=== PATIENT | male | born 1990 | race Caucasian/White ===

== ENCOUNTER 2017-08-05 21:52 | Emergency (ER) | payer OTHER ==
[2017-08-05] MEDS ORDERED: IBUPROFEN 600 MG TABLET (FP) PO ONE ×2 (22:17→22:45)
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
[2017-08-05 22:53] VITALS: BP 127/84; PULSE 88; TEMP 98.9; BMI 27.2
== END 2017-08-05 22:54 | disposition home or self-care (01) ==
LOC: FER 21:52
DX: S16.1XXA Strain of muscle, fascia and tendon at neck level, initial encounter (principal); V23.4XXA Motorcycle driver injured in collision with car, pick-up truck or van in traffic accident, initial encounter; Y93.89 Activity, other specified; Y92.410 Unspecified street and highway as the place of occurrence of the external cause
CPT/HCPCS: 99281-25

== ENCOUNTER 2017-10-06 20:45 | Emergency (ER) | payer OTHER ==
[2017-10-06] MEDS ORDERED: DIPHTH,PERTUSS(ACELL),TET 0.5 ML DISP.SYRIN IM ONE (20:54)
--- NOTE | 2017-10-06 20:55 | PDOC ---
History of Present Illness - General History Source: Patient Exam Limitations: No Limitations - History of Present Illness Initial Comments: 10/06/17 21:36 The patient is a 27 year old male, with no significant past medical history, who presents to the emergency department s/p head injury earlier this evening. The patient reports he was playing basketball and when he went for the ball he was kneed above his left eyebrow and sustained a laceration. Patient reports associated pain to the site of the injury, but denies hitting his head on the floor, any other head trauma, headache, changes in vision, LOC, numbness, or tingling. Patient denies any fever or chills. He denies any nausea or vomiting. Patient does not recall when his last tetanus shot was. He denies any recent travel or sick contacts. Allergies: NKDA Past Surgical History: None reported Social History: Recreational Marijuana use. No Tobacco or ETOH use. <Jaun Hernandez - Last Filed: 10/06/17 21:39> <Fide Broussard - Last Filed: 10/07/17 04:36> - General Chief Complaint: Injury Stated Complaint: LACERATION Time Seen by Provider: 10/06/17 20:47 Past History <Jaun Hernandez - Last Filed: 10/06/17 21:39> - Past Medical History COPD: No - Suicide/Smoking/Psychosocial Hx Smoking History: Never smoked Have you smoked in the past 12 months: No Information on smoking cessation initiated: No Hx Alcohol Use: No Drug/Substance Use Hx: Yes (MARIJUANA) Substance Use Type: None <Fide Broussard - Last Filed: 10/07/17 04:36> - Past Medical History Allergies/Adverse Reactions: Allergies Allergy/AdvReac Type Severity Reaction Status Date / Time No Known Allergies Allergy Verified 10/06/17 20:46 Home Medications: Ambulatory Orders NK [No Known Home Medication] 08/05/17 Review of Systems - Review of Systems Able to Perform ROS?: Yes Comments:: 10/06/17 21:36 CONSTITUTIONAL: Absent: fever, no chills, no fatigue EYES: Absent: visual changes ENT: Absent: ear pain, no sore throat CARDIOVASCULAR: Absent: chest pain, no palpitations RESPIRATORY: Absent: cough, no SOB GI: Absent: abdominal pain, no nausea, no vomiting, no constipation, no diarrhea GENITOURINARY: Absent: dysuria, no frequency, no hematuria MUSKULOSKELETAL: Absent: back pain, no arthralgia, no myalgia SKIN: Present: Laceration/pain above left eyebrow Absent: rash NEURO: Absent: headache <Jaun Hernandez - Last Filed: 10/06/17 21:39> *Physical Exam - Vital Signs Last Vital Signs Temp Pulse Resp BP Pulse Ox 98.7 F 105 H 16 140/85 100 10/06/17 20:46 10/06/17 20:46 10/06/17 20:46 10/06/17 20:46 10/06/17 20:46 - Physical Exam Comments: 10/06/17 21:40 GENERAL: The patient is awake, alert, and fully oriented, in no acute distress. HEAD:Normal with no signs of trauma. EYES: Extraocular movements intact, sclera anicteric, conjunctiva clear. No significant orbital bone tenderness. Pupils are 3 mm equal and reactive to light NECK: Normal range of motion, supple without lymphadenopathy, JVD, or masses. EXTREMITIES: Normal range of motion, no edema. NEUROLOGICAL: Cranial nerves II through XII grossly intact. Normal speech, normal gait. PSYCH: Normal mood, normal affect. SKIN: 2.5 cm full thickness horizontal laceration above the lateral aspect of the left eyebrow. Warm, Dry, normal turgor, no rashes or other lesions noted. <Jaun Hernandez - Last Filed: 10/06/17 21:39> - Vital Signs Last Vital Signs Temp Pulse Resp BP Pulse Ox 98.7 F 105 H 16 140/85 100 10/06/17 20:46 10/06/17 20:46 10/06/17 20:46 10/06/17 20:46 10/06/17 20:46 <Fide Broussard - Last Filed: 10/07/17 04:36> Procedures - Laceration/Wound Repair Left Lower Frontal Wound Length: 5.0 to 7.5 cm Wound's Depth, Shape: linear Irrigated w/ Saline: Yes Betadine Prep: No Anesthesia: 1% Lidocaine Amount of Anesthetic (ccs): 2 Wound Debrided: minimal Wound Repaired With: Sutures Suture Size/Type: 5:0 Number of Sutures: 5 Layer Closure: No Sterile Dressing Applied: No Splint Applied: No Progress: Lateral aspect of left prepped using ethanol/Hibiclens solution. 2 mL of 1% lidocaine infiltrated into the wound for local anesthesia. Wound irrigated using 40 mL sterile normal saline. Edges of wound closely approximated and wound closed using 5 interrupted sutures of 5-0 nylon. Bacitracin applied to the wound. Patient tolerated procedure well <Fide Broussard - Last Filed: 10/07/17 04:36> ED Treatment Course - Medications Given in the ED: ED Medications Discontinued Medications Generic Name Dose Route Start Last Admin Trade Name Darvin PRN Reason Stop Dose Admin Diphtheria/Tetanus/Acell Pertussis 0.5 ml 10/06/17 20:54 10/06/17 20:57 Boostrix - IM 10/06/17 20:55 0.5 ml .ONCE ONE Administration <Jaun Hernandez - Last Filed: 10/06/17 21:39> *DC/Admit/Observation/Transfer - Attestations Scribe Attestion: 10/06/17 21:36 Documentation prepared by Jaun Hernandez, acting as medical logistics specialist for Fide Broussard MD. <Jaun Hernandez - Last Filed: 10/06/17 21:39> <Fide Broussard - Last Filed: 10/07/17 04:36> Diagnosis at time of Disposition: Laceration of left eyebrow Qualifiers: Encounter type: initial encounter Qualified Code(s): S01.112A - Laceration without foreign body of left eyelid and periocular area, initial encounter - Discharge Dispostion Disposition: HOME Condition at time of disposition: Stable - Patient Instructions Printed Discharge Instructions: How to Care for a Laceration After Repair Additional Instructions: Keep head elevated on extra pillow tonight Bacitracin to wound daily for the next 7 days Tylenol as needed for pain/headache Keep wound as dry as possible for 48 hours then can wet briefly Have sutures removed on October 13 Return to ER or see your doctor if you have pain/swelling/redness of wound or experience headaches/vomiting
[2017-10-06 20:57] VITALS: BP 140/85; PULSE 105; TEMP 98.7; BMI 30.4
== END 2017-10-06 22:14 | disposition home or self-care (01) ==
LOC: FER 20:45
PROC: 08QRXZZ Repair Left Lower Eyelid, External Approach (ICD-10-PCS; principal; 2017-10-06)
PROC: 3E0234Z Introduction of Serum, Toxoid and Vaccine into Muscle, Percutaneous Approach (ICD-10-PCS; 2017-10-06)
DX: S01.112A Laceration without foreign body of left eyelid and periocular area, initial encounter (principal); W21.05XA Struck by basketball, initial encounter; Y93.67 Activity, basketball; Y92.89 Other specified places as the place of occurrence of the external cause
CPT/HCPCS: 12014; 90471; 90715; 99281-25

== ENCOUNTER 2017-11-15 15:10 | Emergency (ER) | payer OTHER ==
--- NOTE | 2017-11-15 15:15 | PDOC ---
History of Present Illness - General Chief Complaint: Suture/Staple Removal(Here) Stated Complaint: SUTURE REMOVAL FROM LEFT EYEBROW Time Seen by Provider: 11/15/17 15:15 - History of Present Illness Initial Comments: 11/15/17 15:27 27-year-old male presents the emergency department for suture removal. Patient had 5 stitches placed to his left superior lateral eyebrow 6 weeks ago. Patient reports delay in having his stitches removed because he thought they could be removed at any time. He presents today with only for stitches, reports that his dog accidentally bit at 1 and pulled it 2 weeks ago. Denies any redness or discharge from the incision. He feels well, denies fevers, chills, chest pain, shortness of breath, abdominal pain. Past History - Past Medical History Allergies/Adverse Reactions: Allergies Allergy/AdvReac Type Severity Reaction Status Date / Time No Known Allergies Allergy Verified 10/14/17 10:25 Home Medications: Ambulatory Orders NK [No Known Home Medication] 08/05/17 COPD: No - Suicide/Smoking/Psychosocial Hx Smoking History: Never smoked Have you smoked in the past 12 months: No Hx Alcohol Use: No Drug/Substance Use Hx: Yes (MARIJUANA) Substance Use Type: None Review of Systems - Review of Systems Comments:: 11/15/17 15:31 GENERAL/CONSTITUTIONAL: No fever or chills. No weakness. HEAD, EYES, EARS, NOSE AND THROAT: No change in vision. No ear pain or discharge. No sore throat. GASTROINTESTINAL: No nausea, vomiting, diarrhea or constipation. GENITOURINARY: No dysuria, frequency, or change in urination. CARDIOVASCULAR: No chest pain or shortness of breath. RESPIRATORY: No cough, wheezing, or hemoptysis. MUSCULOSKELETAL: No joint or muscle swelling or pain. No neck or back pain. SKIN: No rash, +sutures NEUROLOGIC: No headache, vertigo, loss of consciousness, or change in strength/ sensation. ENDOCRINE: No increased thirst. No abnormal weight change. HEMATOLOGIC/LYMPHATIC: No anemia, easy bleeding, or history of blood clots. ALLERGIC/IMMUNOLOGIC: No hives or skin allergy. *Physical Exam - Physical Exam Comments: 11/15/17 15:32 GENERAL: Awake, alert, and fully oriented, in no acute distress HEAD: No signs of trauma EYES: PERRLA, EOMI, sclera anicteric, conjunctiva clear ENT: Auricles normal inspection, hearing grossly normal, nares patent, oropharynx clear without exudates. Moist mucosa NECK: Normal ROM, supple, no lymphadenopathy, JVD, or masses LUNGS: Breath sounds equal, clear to auscultation bilaterally. No wheezes, and no crackles HEART: Regular rate and rhythm, normal S1 and S2, no murmurs, rubs or gallops ABDOMEN: Soft, nontender, normoactive bowel sounds. No guarding, no rebound. No masses EXTREMITIES: Normal range of motion, no edema. No clubbing or cyanosis. No cords, erythema, or tenderness NEUROLOGICAL: Normal speech, cranial nerves intact, negative pronator drift, 5/ 5 strength in all 4 extremities, normal sensation to light touch in all 4 extremities, normal cerebellar exam, normal gait, normal reflexes and tone SKIN: 4 sutures on L supereolateral eyebrow with minimal skin overgrowth. Wound clean/dry/intact with no erythema or discharge. Removed easily with no complications. Skin is warm, Dry, normal turgor, no rashes or lesions noted. Medical Decision Making - Medical Decision Making 11/15/17 15:33 27-year-old male presents for suture removal. 4 nylon sutures removed without complication. Patient counseled about scar formation, expresses understanding. I discussed the physical exam findings, ancillary test results and final diagnoses with the patient. I answered all of the patient's questions. The patient was satisfied with the care received and felt comfortable with the discharge plan and treatment plan. The patient will call their primary care physician within 24 hours to arrange follow-up and will return to the Emergency Department with any new, persistent or worsening symptoms. *DC/Admit/Observation/Transfer Diagnosis at time of Disposition: Visit for suture removal - Discharge Dispostion Disposition: HOME Condition at time of disposition: Good Admit: No - Referrals - Patient Instructions Printed Discharge Instructions: DI for Suture Removal Additional Instructions: Follow-up with your primary care doctor within 1-2 weeks. Return to emergency department if you have any new, worsening or concerning symptoms. - Post Discharge Activity - Attestations Physician Attestion: 11/15/17 15:35 I, Dr. Bettye Escobedo MD, attest that this document has been prepared under my direction and personally reviewed by me in its entirety. I further attest, that it accurately reflects all work, treatment, procedures and medical decision -making performed by me.
[2017-11-15 15:22] VITALS: BP 133/72; PULSE 58; TEMP 98.8; BMI 30.2
== END 2017-11-15 15:37 | disposition home or self-care (01) ==
LOC: FER 15:10
DX: Z48.02 Encounter for removal of sutures (principal)
CPT/HCPCS: 99281-25

== ENCOUNTER 2022-09-04 12:00 | Emergency (ER) | payer OTHER ==
[2022-09-04 12:19] VITALS: BP 153/94; PULSE 76; RESP 20; TEMP 98.2; BMI 34.2
[2022-09-04] MEDS ORDERED: AZITHROMYCIN 500 MG TABLET PO ONE (12:26)
[2022-09-04] MEDS ORDERED: valACYclovir HCL 1000 MG TABLET PO ONE (12:26)
[2022-09-04] MEDS ORDERED: valACYclovir HCL 500 MG TABLET (FP) ONE (12:38)
[2022-09-04] MEDS ORDERED: AZITHROMYCIN 500 MG TABLET ONE (12:38)
== END 2022-09-04 13:01 | disposition home or self-care (01) ==
LOC: FER 12:00
DX: A60.01 Herpesviral infection of penis (principal)
CPT/HCPCS: 99284-25